=== PATIENT | female | born 1980 | race Two or more races ===

== ENCOUNTER 2019-03-13 13:18 | Outpatient (CLI) | payer OTHER | END 2019-03-13 14:57 | disposition HB | LOC: LAB 13:18 | DX: O36.8310 Maternal care for abnormalities of the fetal heart rate or rhythm, first trimester, not applicable or unspecified (principal) ==

== ENCOUNTER → 2019-03-13 | Outpatient (CLI) | payer OTHER | END | disposition home or self-care (01) | LOC: PRENATAL 10:00 | DX: O34.219 Maternal care for unspecified type scar from previous cesarean delivery (principal); O09.522 Supervision of elderly multigravida, second trimester; O99.212 Obesity complicating pregnancy, second trimester; O35.3XX1 Maternal care for (suspected) damage to fetus from viral disease in mother, fetus 1; Z3A.20 20 weeks gestation of pregnancy ==

== ENCOUNTER → 2019-04-21 | Outpatient (CLI) | payer OTHER | END | disposition home or self-care (01) | LOC: PRENATAL 11:00 | DX: O36.8311 Maternal care for abnormalities of the fetal heart rate or rhythm, first trimester, fetus 1 (principal); O09.522 Supervision of elderly multigravida, second trimester; O26.842 Uterine size-date discrepancy, second trimester; O99.212 Obesity complicating pregnancy, second trimester; O09.292 Supervision of pregnancy with other poor reproductive or obstetric history, second trimester; O34.211 Maternal care for low transverse scar from previous cesarean delivery ==